=== PATIENT | female | born 2000 | race Hispanic/Latino ===

== ENCOUNTER 2022-01-01 17:28 | Emergency (ER) | payer MEDICAID ==
[~2022-01-01] VITALS: Ht 160 cm; Wt 59.0 kg
[2022-01-01] MEDS ORDERED: MIRALAX17 GM PO (17:58)
== END 2022-01-01 18:37 | disposition home or self-care (01) ==
LOC: FSED 17:43
DX: O26.892 Other specified pregnancy related conditions, second trimester (principal); K59.00 Constipation, unspecified
CPT/HCPCS: 80053; 81003; 99282